=== PATIENT | male | born 1990 | race Caucasian/White ===

== ENCOUNTER 2020-04-13 16:38 | Emergency (ER) | payer OTHER ==
[2020-04-13] MEDS ORDERED: LIDOCAINE VISCOUS 2% 15 ML UDC MM STA (16:46)
[2020-04-13] MEDS ORDERED: MAG HYDROX/AL HYDROX/SIMETH 30 ML UDC PO STA (16:46)
--- NOTE | 2020-04-13 16:48 | ED Physician Documentation ---
PD HPI CHEST PAIN - Stated complaint Stated Complaint: CP - Chief complaint Chief Complaint: Cardiac - History obtained from History obtained from: Patient - Additional information Additional information: 29-year-old gentleman with history of GERD has had intermittent chest pain for the last 5 days. It is a dull slightly migratory left substernal chest pain which is otherwise nonradiating. There is no associated shortness of breath, nausea, sweats. It does not get worse with exertion. Current episode has been 3 hours now. Only cardiac risk factors family history, he says his grandma had bypass surgery but he is not sure at what age. Review of Systems Ten Systems: 10 systems reviewed and negative Constitutional: reports: Reviewed and negative Throat: denies: Dental pain / toothache, Oral lesions / sores, Sore throat Cardiac: denies: Palpitations, Pedal edema, Calf pain Respiratory: denies: Dyspnea PD PAST MEDICAL HISTORY - Present Medications Home Medications: Ambulatory Orders Medication Instructions Recorded Confirmed Famotidine [Pepcid AC] 10 mg PO DAILY 04/13/20 04/13/20 Multivitamin [Multiple Vitamins] 1 each PO DAILY 04/13/20 04/13/20 No Known Home Medications 04/13/20 04/13/20 [place]-3/Dha/Epa/Fish Oil [Fish Oil 1,000 mg PO DAILY 04/13/20 04/13/20 1,000 mg Softgel] - Allergies Allergies/Adverse Reactions: Allergies Allergy/AdvReac Type Severity Reaction Status Date / Time No Known Drug Allergies Allergy Verified 04/13/20 16:48 PD ED PE NORMAL - Vitals Vital signs reviewed: Yes - General General: Alert and oriented X 3, No acute distress - HEENT HEENT: PERRL, EOMI - Neck Neck: Supple, no meningeal sign, No bony TTP - Cardiac Cardiac: RRR, No murmur, Other (Anterior chest wall nontender without rash.) - Respiratory Respiratory: No respiratory distress, Clear bilaterally - Abdomen Abdomen: Non tender - Extremities Extremities: No edema, No calf tenderness / cord - Neuro Neuro: Alert and oriented X 3, Normal speech - Psych Psych: Normal mood, Normal affect Results - Vitals Vitals: Vital Signs - 24 hr 04/13/20 04/13/20 04/13/20 16:44 17:03 17:33 Temperature 36.8 C 36.9 C Heart Rate 87 69 75 Respiratory 16 14 17 Rate Blood Pressure 129/70 123/71 119/73 O2 Saturation 98 98 98 Oxygen O2 Source Room air - EKG (time done) 1642 Rate: Rate (enter#) (77) Rhythm: NSR [place]: Normal Intervals: Normal [place] QRS: Normal Ischemia: Non specific changes (Flat to very slightly inverted T waves inferiorly) Compare to prior EKG: Old EKG unavailable Computer interpretation: Agree with computer - Labs Labs: Laboratory Tests 04/13/20 04/13/20 04/13/20 16:58 16:58 16:58 WBC 7.2 RBC 5.06 Hgb 16.1 Hct 46.6 MCV 92.1 MCH 31.8 H MCHC 34.5 RDW 12.6 Plt Count 313 MPV 8.4 Neut # (Auto) 4.2 Lymph # (Auto) 2.2 [place] # (Auto) 0.5 Eos # (Auto) 0.2 Baso # (Auto) 0.0 Absolute Nucleated RBC 0.00 Nucleated RBC % 0.0 Sodium 138 Potassium 3.4 L Chloride 104 Carbon Dioxide 26 Anion Gap 8.0 BUN 15 Creatinine 1.0 Estimated GFR (MDRD) 88 L Glucose 124 H Calcium 9.1 Total Bilirubin 1.0 AST 16 ALT 24 Alkaline Phosphatase 51 Troponin I High Sens 2.5 Total Protein 6.6 L Albumin 4.2 Globulin 2.4 Albumin/Globulin Ratio 1.8 Lipase 38 - Rads (name of study) 1v chest Radiology: EMP read contemporaneously (normal) PD MEDICAL DECISION MAKING - ED course ED course: Heart score 0-1 PERC neg Departure - Departure Disposition: 01 Home, Self Care Clinical Impression: Atypical chest pain Condition: Good Record reviewed to determine appropriate education?: Yes Instructions: ED Chest Pain NonCardiac Comments: Call your doctor to arrange a follow-up appointment, make the next available appointment. In the interim, return anytime if worse or if new symptoms develop. Discharge Date/Time: 04/13/20 17:40
[2020-04-13 17:06] LABS: BASOPHILS % (AUTO) 0.4 %; EOSINOPHILS # (AUTO) 0.2 10^3/uL (0.0-0.7); EOSINOPHILS % (AUTO) 2.4 %; HGB - HEMOGLOBIN 16.1 g/dL (14.0-18.0); LYMPHOCYTES # (AUTO) 2.2 10^3/uL (1.5-3.5); MEAN CORPUSCULAR HEMOGLOBIN 31.8 pg (27.0-31.0); MEAN CORPUSCULAR HGB CONC 34.5 g/dL (32.0-36.0); MEAN CORPUSCULAR VOLUME 92.1 fL (80.0-94.0); MEAN PLATELET VOLUME 8.4 fL (7.4-11.4); MONOCYTES # (AUTO) 0.5 10^3/uL (0.0-1.0); MONOCYTES % (AUTO) 7.3 %; NEUTROPHILS # (AUTO) 4.2 10^3/uL (1.5-6.6); NEUTROPHILS % (AUTO) 58.6 %; PLT - PLATELET COUNT 313 10^3/uL (130-450); RED BLOOD COUNT 5.06 10^6/uL (4.70-6.10); RED CELL DISTRIBUTION WIDTH 12.6 % (12.0-15.0); WHITE BLOOD COUNT 7.2 x10^3/uL (4.8-10.8)
--- NOTE | 2020-04-13 17:13 | XRAY Report ---
PROCEDURE: Chest 1 View X-Ray INDICATIONS: Chest Pain TECHNIQUE: One view of the chest was acquired. COMPARISON: None. FINDINGS: Surgical changes and devices: None. Lungs and pleura: No pleural effusions or pneumothorax. Lungs are clear. Mediastinum: Mediastinal contours appear normal. Heart size is normal. Bones and chest wall: No suspicious bony lesions. Overlying soft tissues appear unremarkable. IMPRESSION: No acute disease. Reviewed by: Lucia Win MD on 04/13/2020 5:12 PM PDT Approved by: Lucia Win MD on 04/13/2020 5:12 PM PDT Station ID: [id number]
[2020-04-13 17:20] LABS: ALBUMIN 4.2 g/dL (3.2-5.5); ALBUMIN/GLOBULIN RATIO 1.8 (1.0-2.2); CALCIUM 9.1 mg/dL (8.5-10.3); TOTAL PROTEIN 6.6 g/dL (6.7-8.2)
[2020-04-13 17:35] VITALS: BP 119/73
== END 2020-04-13 17:40 | disposition home or self-care (01) ==
LOC: ED 16:38
DX: R07.89 Other chest pain (principal)
CPT/HCPCS: 36415; 71045; 80053; 83690; 84484; 85025; 93005; 99284; A9270

== ENCOUNTER 2020-09-22 09:30 | Outpatient (CLI) | payer OTHER ==
--- NOTE | 2020-09-22 12:55 | SLEEP CARE CONSULTATION ---
Information from patient questionnaire entered by Amina Ness. I have reviewed and concur with the information entered by Amina Ness. This document represents the service I personally performed and the decisions made by me, Morales Moss MD, [facility]. History of Present Illness Service Date and Time: 09/22/2020 0930 Reason for Visit: New patient Chief Complaint: reports: Insomnia, Unrefreshed sleep, Snoring, Excessive daytime sleepiness, Fatigue, Frequent awakenings at night Date of Onset: several years, at least 5 Usual bedtime: 10 pm - 2 am Time it takes to fall asleep: without meds it can take awhile Snores at night: Yes (I have been told I do) Observed to quit breathing while asleep: No Sleeps alone due to snoring: No Number of times waking at night: 3-5 Reasons for waking at night: reports: Pain (usually), Bathroom (sometimes), Other (numbness in extemeties) Toss, Turn, or Twitch while sleeping: Yes Recalls having dreams: Yes Usually gets out of bed at: 3-4:30 am Feels refreshed in the morning: No Morning headache: No (only during cluster periods) Sleepy or fatigued during the day: Yes Ever fallen asleep while driving: Yes Takes day naps: No Dreams during day naps: No Prior sleep studies: No Additional HPI information: I had the pleasure of seeing Mr. Giron today regarding the possibility of him having a sleep disorder. As you know, he is a 30 year old gentleman who complains of insomnia, unrefreshed sleep, loud snore, frequent awakenings, persistent fatigue, and excessive daytime sleepiness for about 5 years. The patient tells me that he normally goes to bed around 10 pm 2 am, and it takes him approximately 60 minutes to fall asleep. He takes doxepin at bedtime. He has been told that he snores loudly and irregularly at night. He has never been observed to stop breathing in his sleep. His can still sleep in the same bed. He can recall waking up on the average of 3 - 5 times during the night. He has never awakened because of his own snoring, choking, and having to gasp for air. There is not a lot of tossing and turning in his sleep. No somniloquy (sleep talking) or somnambulism (sleep walking). Generally he can recall having dreams. In the morning he usually gets up out of the bed around 3 4:30 a.m. (9 11 pm on the weekends) not feeling refreshed nor rested. His shift is from 4 am to 6 pm 2 3 days a week. He usually does not have a morning headache. During the day he complains of feeling sleepy and fatigued. His score on [place] Sleepiness Scale is 8 out of 24. He has fallen asleep while driving and has gone out of the taryn. He usually does not take naps during the day. Upon falling asleep during the day he to denies having vivid dreams. He has never had sleep paralysis, experienced cataplexy but reports symptoms of restless leg syndrome. He reports having impaired concentration during the day. - Parasomnia Symptoms Ever been unable to move upon waking from sleep: Yes Ever felt weak in the knees when startled or emotional: Yes Bothered by creepy, crawly, restless sensations in legs: Yes Problems with memory or concentration: Yes Subjective Initial [place] Sleepiness Scale score: 8 (in 2020) Past Medical History Past Medical History: reports: Anxiety, Depression, GERD, Other (cluster headaches) Social History The patient's occupation is a Active (). Patient is and lives in [place]. Have you smoked in the past 12 months: No Alcohol use: Yes Alcohol amount and frequency: 1-2 monthy Caffeine use: Yes Caffeine amount and frequency: several a day; 1-2 energy drinks and coffee Family History Family history of sleep disordered breathing: Yes (dad) Family Hx Sleep Apnea: Father: Snoring Allergies and Home Medications Drug allergies reviewed: Yes Home medication list reviewed: Yes (doxepin, escitalopram, verapamil, pantoprazole, and methylprednisolone) Review of Systems Weight gain over past 5 years: 20 Weight loss over past 5 years: 35 Cardiovascular: reports: chest pain (GERD) Respiratory: reports: shortness of breath Gastrointestinal: reports: difficulty swallowing, nausea, diarrhea Urinary: reports: urgency Neurological: reports: headaches Psychiatric: reports: anxiety, depression Ear/Nose/Throat: reports: nasal congestion, dry mouth/throat, injury to nose, wisdom teeth removed Endocrine: reports: sluggishness, too hot or cold, excessive thirst (not excessive) Musculoskeletal: reports: joint pain, neck pain, back pain Immunologic: reports: sneezing, allergies to food or environment (cats) Physical Exam Vital signs obtained and entered by: Dr. Moss Heart Rate: 83 O2 Saturation: 98 Height: 5 ft 10 in Weight: 170 lb Body Mass Index: 24.3 BMI Classification: Healthy weight Neck circumference: 16 Mood/affect: normal HEENT: No craniofacial malformation Nostrils: patent to airflow Turbinates: normal Septum: midline Mouth and throat: narrow oropharynx Soft palate: long Hard palate: normal Uvula: normal Uvula visualization: 50% Mallampati Class II Tongue: normal in size Tonsils: small Chin and jaw: normal size and position Heart: regular rate and rhythm Lungs: clear bilaterally Impression and Plan IMPRESSION: 1. Obstructive Sleep Apnea-Hypopnea Syndrome, as suggested by history of loud and irregular snoring, frequent awakenings during the night, unrefreshed sleep, cognitive impairment, and daytime hypersomnolence. Narrow oropharynx is a common predisposing factor for obstructive sleep apnea-hypopnea syndrome. I recommend proceeding to polysomnography to confirm the diagnosis and to assess severity. I informed the patient of what the sleep studies involve and after some discussion, he agreed to proceed. Plan: 1. Schedule polysomnography and return in 1 to 2 weeks after the study to discuss result and initiate therapy. 2. Avoid long distance driving or when feeling sleepy. 3. Avoid alcohol, sedative and muscle relaxant around bedtime. Visit Type: In Office Time Spent with Patient (minutes): 15 Provider Statement: I spent 100% of the Face to Face Visit with the patient with greater than 50% spent counseling the patient and coordination of care.
== END 2020-09-22 09:31 | disposition home or self-care (01) ==
LOC: SC 09:30
PROVIDERS: ATTEND Internal Medicine Pulmonary Disease
DX: R06.83 Snoring (principal); G47.8 Other sleep disorders; R51.9 Headache, unspecified; G47.10 Hypersomnia, unspecified; R41.89 Other symptoms and signs involving cognitive functions and awareness
CPT/HCPCS: 99202; 99212

== ENCOUNTER 2020-09-28 19:04 | Outpatient (CLI) | payer OTHER | END 2020-09-28 19:05 | disposition home or self-care (01) | LOC: SC 19:04 | PROVIDERS: ATTEND Internal Medicine Pulmonary Disease | DX: R06.83 Snoring (principal); R41.89 Other symptoms and signs involving cognitive functions and awareness; G47.10 Hypersomnia, unspecified; G47.8 Other sleep disorders | CPT/HCPCS: 95810 ==

== ENCOUNTER 2020-10-03 14:38 | Outpatient (CLI) | payer OTHER ==
--- NOTE | 2020-10-03 14:58 | SLEEP CARE CONSULTATION ---
Information from patient questionnaire entered by Pasha Bahena. I have reviewed and concur with the information entered by Pasha Bahena. This document represents the service I personally performed and the decisions made by , Shira Campos ARNP. History of Present Illness Service Date and Time: 10/03/2020 1438 Initial [place] Sleepiness Scale score: 8 (in 2020) Current [place] Sleepiness Scale score: 12 Additional HPI information: CARA BRAMBILA returns for follow up and results of the recently performed polysomnography. The patient was informed of the following findings: no significant sleep disordered breathing with an average AHI of 1.5 and clive oxygen saturation of 90%. I explained the pathophysiology behind obstructive sleep apnea. Patient does not have sleep apnea and was advised how weight gain could increase the risk of developing sleep apnea in the future. Patient has moderate snoring. Snoring can be reduced by weight loss. Weight loss is best achieved with diet consult. Patient instructed to contact PCP for referral. Snoring can also be treated with an oral appliance from a dentist. Advised to check insurance coverage. In addition, an ENT evaluation can be do to see if other treatment is indicated. Patient counseled not drink alcohol less than 4 hours before bedtime as it can increase snoring and apnea. Patient was cautioned about risks of drowsy driving until sleepiness symptoms resolve. Sleep Study - Results Type of Sleep Study: Polysomnography Prior sleep studies: No Polysomnography/Home Sleep Study results: IMPRESSION: The quality of the study is good. The patient had normal sleep efficiency. The sleep architecture was normal as well. Respiratory monitoring showed no significant sleep disordered breathing (AHI = 1.5) or hypoxia (clive oxygen saturation of 90%). The few respiratory events occurred mainly during supine REM sleep (supine AHI = 2.8; non-supine = 0.28). Snore was moderate in intensity. There was no significant periodic leg movement of sleep. Cardiac rhythm was normal sinus rhythm without significant arrhythmia. No abnormal behavior (parasomnia) observed during the night. Allergies and Home Medications Drug allergies reviewed: Yes (NKDA) Home medication list reviewed: Yes (no changes) Review of Systems Review of systems same as previous: Yes (no changes) Physical Exam Heart Rate: 70 O2 Saturation: 98 Height: 5 ft 10 in Weight: 176 lb Body Mass Index: 25.2 BMI Classification: Overweight Impression and Plan Snoring but no significant sleep disordered breathing. Patient advised that often weight loss will reduce snoring as well as apnea risk. An oral appliance can also be used for snoring. This would require a dental consultation. Patient cautioned not to use other online appliances as can cause bite issues. A list of accredited dentists in [facility] and one local dentist who makes oral appliances is available in office if needed. Patient is advised to check if insurance will cover. An ENT consult can also be helpful to determine if any other treatment is an option. * Attempt to lose weight and maintain a healthy weight * Avoid alcohol consumption near bedtime * The patient is cautioned about driving until sleepiness is completely resolved. * Return as needed. Counseling Topics: Weight loss health impact Visit Type: In Office Time Spent with Patient (minutes): 11 Provider Statement: I spent 100% of the Face to Face Visit with the patient with greater than 50% spent counseling the patient and coordination of care.
== END 2020-10-03 14:39 | disposition home or self-care (01) ==
LOC: SC 14:38
PROVIDERS: ATTEND Nurse Practitioner Family
DX: G47.10 Hypersomnia, unspecified (principal); G47.00 Insomnia, unspecified; G47.8 Other sleep disorders; R06.83 Snoring
CPT/HCPCS: 99212